=== PATIENT | female | born 2000 | race Caucasian/White ===

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

== ENCOUNTER → 2018-07-10 15:37 | Outpatient (CLI) | payer OTHER ==
[2013-03-08 11:36] VITALS: BMI 23.7
== END | disposition home or self-care (01) ==
LOC: D.US 15:37
PROVIDERS: ATTEND Legal Medicine
DX: E04.1 Nontoxic single thyroid nodule (principal)

== ENCOUNTER → 2018-11-16 12:53 | Outpatient (CLI) | payer OTHER ==
[2013-03-08 11:36] VITALS: BMI 23.7
== END | disposition home or self-care (01) ==
LOC: D.US 12:53
PROVIDERS: ATTEND General Practice
DX: E06.3 Autoimmune thyroiditis (principal); E04.1 Nontoxic single thyroid nodule

== ENCOUNTER → 2020-06-26 08:43 | Outpatient (CLI) | payer OTHER ==
[2013-03-08 11:36] VITALS: BMI 23.7
== END | disposition home or self-care (01) ==
LOC: D.US 08:43
PROVIDERS: ATTEND Internal Medicine Gastroenterology
DX: R11.2 Nausea with vomiting, unspecified (principal); R10.84 Generalized abdominal pain